=== PATIENT | male | born 1975 | race Caucasian/White ===

== ENCOUNTER 2018-06-29 17:40 | Emergency (ER) | payer SELFPAY ==
--- NOTE | 2018-06-29 18:06 | Emergency Department Record ---
History of Present Illness - General Chief Complaint: Difficulty Breathing Stated Complaint: YURIY,COUGHED AND PASSED OUT YESTERDAY Time Seen by Provider: 06/29/18 18:00 Source: Patient Mode of Arrival: Ambulatory Limitations: No limitations - History of Present Illness Initial Comments: 42 yo male presents with a cough that he states is chronic for many years. The cough has been worse the last week the cough has been worse. He coughs so hard at times he has passed out. He denies chest pain. No smoking. He has had significant reflux for several years as well. He has reflux nightly that sometimes wakes him up when he is sleeping. He coughs up sputum in the mornings daily. The sputum this week is sometimes clear and sometimes a little yellow which is new. No prescription medications. No PCP currently. MD Complaint: Cough Onset/Timin -: Days(s) Severity: Moderate Severity scale (1-10): 2 Quality: Aching Consistency: Intermittent Worsens With: Coughing Context: Other (Reflux) Associated Symptoms: Cough - Related Data Previous Rx's Medication Instructions Recorded Azithromycin [Zithromax] 250 mg PO DAILY #4 tablet 06/29/18 Benzonatate [Tessalon] 1 cap PO Q8H PRN #20 cap 06/29/18 Allergies Allergy/AdvReac Type Severity Reaction Status Date / Time No Known Drug Allergies Allergy Verified 06/29/18 17:51 Travel Screening - Travel/Exposure Within Last 30 Days Have you traveled within the last 30 days?: No - Travel/Exposure Within Last Year Have you traveled outside the [place] in the last year?: No - Additonal Travel Details Have you been exposed to anyone with a communicable illness?: No - Travel Symptoms Symptom Screening: None Review of Systems Constitutional: Denies: Chills, Fever, Malaise, Weakness Eyes: Denies: Eye discharge ENT: Denies: Congestion, Throat pain Respiratory: Reports: Cough. Denies: Dyspnea, Hemoptysis, Stridor, Wheezes Cardiovascular: Reports: Syncope (with cough). Denies: Chest pain, Palpitations Endocrine: Denies: Fatigue, Polydipsia, Polyuria Gastrointestinal: Reports: Other (Reflux). Denies: Abdominal pain, Diarrhea, Nausea, Vomiting Genitourinary: Denies: Dysuria, Frequency, Hematuria Musculoskeletal: Denies: Arthralgia, Back pain, Myalgia Skin: Denies: Bruising, Change in color, Rash Neurological: Denies: Headache Psychiatric: Denies: Anxiety Hematological/Lymphatic: Denies: Blood Clots, Easy bleeding, Easy bruising, Swollen glands Past Medical History - SOCIAL HISTORY Smoking Status: Never smoker - RESPIRATORY Comment:: YURIY secondary to GERD - CARDIOVASCULAR Hx Cardio Disorders: Yes Hx Hypertension: Yes - NEURO Hx Neuro Disorders: Yes Hx Headaches: Yes - GI Hx Crohn's Disease: Yes Hx Reflux: Yes - Hx Genitourinary Disorders: No - ENDOCRINE Hx Endocrine Disorders: No Hx Diabetes: No Hx Thyroid Disease: No - MUSCULOSKELETAL Hx Musculoskeletal Disorders: No - PSYCH Hx Psych Problems: No Family Medical History Any Significant Family History?: Yes Physical Exam - General General Appearance: Alert, Oriented x3, Cooperative, No acute distress Limitations: No limitations - Head Head exam: Atraumatic, Normal inspection - Eye Eye exam: Normal appearance. negative: Conjunctival injection, Scleral icterus - ENT ENT exam: Normal exam, Mucous membranes moist, Normal orophraynx Ear exam: Normal external inspection Nasal Exam: Normal inspection Mouth exam: Normal external inspection Teeth exam: Normal inspection Throat exam: Normal inspection. negative: Tonsillar erythema, Tonsillomegaly, Tonsillar exudate, R peritonsillar mass, L peritonsillar mass - Neck Neck exam: Normal inspection. negative: Lymphadenopathy - Respiratory Respiratory exam: Normal lung sounds bilaterally. negative: Accessory muscle use, Decreased breath sounds, Respiratory distress, Rhonchi, Stridor, Wheezes - Cardiovascular Cardiovascular Exam: Regular rate, Normal rhythm, Normal heart sounds - GI/Abdominal GI/Abdominal exam: Soft. negative: Tenderness - Rectal Rectal exam: Deferred - exam: Deferred - Extremities Extremities exam: Normal inspection - Back Back exam: Denies: CVA tenderness (R), CVA tenderness (L) - Neurological Neurological exam: Alert, Oriented X3 - Psychiatric Psychiatric exam: Normal affect, Normal mood - Skin Skin exam: Dry, Intact, Normal color, Warm Course Vital Signs 06/29/18 17:42 Temperature 97.3 F L Pulse Rate 82 Respiratory 18 Rate Blood Pressure 142/101 Pulse Ox 99 - Reevaluation(s) Reevaluation #1: Vitals reviewed No significant abnormalities Mild elevation of blood pressure 06/29/18 18:08 06/29/18 18:10 EKG 18:06 NSR, Rate 71, Intervals normal, [place] normal, ST normal. Disposition Disposition: Discharge Clinical Impression: Cough, Chronic GERD Disposition: Home, Self-Care Condition: (1) Good Instructions: Gastroesophageal Reflux Disease (ED), Chronic Cough (ED) Additional Instructions: Call the number provided to get a new family doctor Return if you have fever, short of breath or any new symptoms Take the Prilosec twice daily for 2 weeks then back to once daily Prescriptions: Azithromycin [Zithromax] 250 mg PO DAILY #4 tablet Benzonatate [Tessalon] 1 cap PO Q8H PRN #20 cap PRN Reason: Cough Referrals: OSMAN SIMMONS [DOCTOR OF OSTEOPATH] - Forms: Patient Portal Access Time of Disposition: 18:29 Quality - Quality Measures Quality Measures: N/A - Blood Pressure Screening Does Patient Have Any of the Following: No Blood Pressure Classification: Hypertensive Reading Systolic Measurement: 142 Diastolic Measurement: 101 Screening for High Blood Pressure: < Pre-Hypertensive BP, F/U Documented > [ [id number]] Pre-Hypertensive Follow-up Interventions: Referral to alternative/primary care provider.
[2018-06-29] MEDS ORDERED: AZITHROMYCIN 500 MG TABLET PO ONE (18:36)
--- NOTE | 2018-06-30 14:50 | RADIOLOGY REPORT ---
EXAM: CHEST, TWO VIEWS HISTORY: COUGH. TECHNIQUE: Frontal and lateral views of the chest were obtained. Comparison: None. FINDINGS: Frontal and lateral views of the chest show well expanded lungs. No consolidation. Bilateral perihilar peribronchial thickening is present. No pleural effusion. The cardiomediastinal silhouette is within normal limits. No pulmonary vascular congestion. IMPRESSION: FINDINGS IN THE CHEST ARE CONSISTENT WITH BRONCHITIS. NO LOBAR CONSOLIDATION. JOB NUMBER: [id number] [facility]
== END 2018-06-29 18:52 | disposition home or self-care (01) ==
LOC: ER 17:40
DX: R05 Cough (principal); R06.00 Dyspnea, unspecified; K21.9 Gastro-esophageal reflux disease without esophagitis; I10 Essential (primary) hypertension
CPT/HCPCS: 71046; 93005; 93010; 99284